=== PATIENT | female | born 1965 | race Caucasian/White ===

== ENCOUNTER 2018-03-31 10:13 | Day surgery (SDC) | payer MEDICAID ==
[~2018-03-31] VITALS: Ht 154.9 cm; Wt 61.0 kg
[2018-03-31] MEDS ORDERED: ALBU8.5H8 IH (10:53)
[2018-03-31] MEDS ORDERED: MOME13HF IH (10:53)
[2018-03-31] MEDS ORDERED: TIOT185 IH (10:53)
[2018-03-31] MEDS ORDERED: IPRA3AMP23 IH (10:53)
[2018-03-31] MEDS ORDERED: SODIUM CHLORIDE 0.9% 1,000 ML IV ONE (10:56)
[2018-03-31] MEDS: SODIUM CHLORIDE 0.9% 1,000 ML IV ONE (11:08)
[2018-03-31] MEDS ORDERED: PROPOFOL 1% 20 ML VIAL IVP ONE (12:00)
== END 2018-03-31 14:15 | disposition home or self-care (01) ==
LOC: SURGERY 10:13
PROVIDERS: ATTEND Internal Medicine Gastroenterology
DX: D12.7 Benign neoplasm of rectosigmoid junction (principal); D12.4 Benign neoplasm of descending colon; K21.0 Gastro-esophageal reflux disease with esophagitis; K29.50 Unspecified chronic gastritis without bleeding; K63.89 Other specified diseases of intestine; J44.9 Chronic obstructive pulmonary disease, unspecified; F17.210 Nicotine dependence, cigarettes, uncomplicated; F15.11 Other stimulant abuse, in remission; Z87.01 Personal history of pneumonia (recurrent); Z87.09 Personal history of other diseases of the respiratory system; Z86.19 Personal history of other infectious and parasitic diseases; Z72.89 Other problems related to lifestyle; Z88.0 Allergy status to penicillin; Z98.890 Other specified postprocedural states; Z79.899 Other long term (current) drug therapy; Z88.8 Allergy status to other drugs, medicaments and biological substances
CPT/HCPCS: 43239; 45380; 45385; C1769; J2704; J7030